=== PATIENT | female | born 1960 | race Caucasian/White ===

== ENCOUNTER 2020-04-22 00:30 | Outpatient (CLI) | payer MEDICAID, SELFPAY ==
[2020-04-22 18:56] LABS: SARS-CoV-2 RNA PCR Negative
== END 2020-04-22 00:31 | disposition home or self-care (01) ==
PROVIDERS: Visit Provider Student in an Organized Health Care Education/Training Program
DX: Z01.818 Encounter for other preprocedural examination (principal); Z11.59 Encounter for screening for other viral diseases
CPT/HCPCS: 87635; C9803; U0003

== ENCOUNTER 2020-04-22 09:52 | Outpatient (CLI) | payer MEDICAID, SELFPAY ==
--- NOTE | 2020-04-22 09:55 | ECG_ITS ---
Measurements Intervals [place] Rate: 49 P: 42 CO: 128 QRS: 6 QRSD: 101 T: 9 QT: 458 QTc: 417 Interpretive Statements SINUS BRADYCARDIA POOR R WAVE PROGRESSION, ANTERIOR LEADS BASELINE ARTIFACT- I, II, III, AVR, AVL, AVF ABNORMAL ECG Electronically Signed On 04-22-2020 10:45:39 CDT by Jose Gonzalez D.O.
[2020-04-22 10:27] LABS: Hematocrit 43.6 % (37.0-47.0); Hemoglobin 14.4 g/dL (12.0-15.0); Mean Corpuscular Hemoglobin 30.8 pg (26-34); Mean Corpuscular Volume 93.4 fl (80-100); Platelet Count Result 264 k/mm3 (150-375); Red Blood Count 4.67 M/mm3 (4.2-5.4); Red Cell Distribution Width 12.5 % (11.5-14.5); White Blood Count 7.8 K/mm3 (4.5-10.0)
== END 2020-04-22 09:53 | disposition home or self-care (01) ==
LOC: ANHSURGERY 09:55
PROVIDERS: Visit Provider Student in an Organized Health Care Education/Training Program
DX: Z01.818 Encounter for other preprocedural examination (principal); N95.0 Postmenopausal bleeding; I10 Essential (primary) hypertension; R94.31 Abnormal electrocardiogram [ECG] [EKG]
CPT/HCPCS: 36415; 85027; 86850; 86900; 86901; 93005

== ENCOUNTER 2020-04-24 01:42 | Day surgery (SDC) | payer MEDICAID, SELFPAY ==
[2020-04-14 15:20] VITALS: BMI 36.6
[2020-04-24] VITALS (13 sets, daily range): BP systolic 128–168; BP diastolic 53–82; PULSE 49–76; RESP 15–20; TEMP 36.1–37.2; O2SAT 91–100
--- NOTE | 2020-04-24 07:20 | PM.IMHP ---
H&P: HPI History of Present Illness Chief complaint: Postmenopausal Bleeding Narrative: Juliet Antunez is a 59 year old female with postmenopausal bleeding. Pt presented with this problem in May. She has undergone hysteroscopy, D&C without relief of her symptoms. D&C specimen came back benign endometrial polyp and fibroid. Pt states she is done with bleeding and cramping and would like definitive management via hysterectomy. Review of Systems Cardiovascular: Cardiovascular: Denies chest pain, Denies leg edema, Denies palpitations, Denies dyspnea and Denies dyspnea on exertion Respiratory: Respiratory: Denies cough, Denies dyspnea and Denies dyspnea on exertion Gastrointestinal: Gastrointestinal: Denies abdominal pain, Denies constipation, Denies diarrhea, Denies nausea and Denies vomiting Genitourinary: Genitourinary: Denies hematuria, Denies urinary frequency, Denies dysuria, Denies pelvic pain, Denies urinary incontinence and Denies vaginal discharge Neurologic: Reports system reviewed and no additional complaints, except as documented Psychiatric: Psychiatric: Reports no additional psychiatric complaints Endocrine: Endocrine: Denies palpitations PMFSH Past Medical History Medical History (Updated 04/24/20 @ 07:23 by Abdulaziz Benjamin MD) Anxiety Hypertension Osteoarthritis TIA (transient ischemic attack) x3 2017, no deficits Meds Home Medications and Allergies Home Medications Medication Instructions Recorded Confirmed Type alprazolam 0.5 mg PO HS PRN 04/14/20 04/14/20 History amlodipine 5 mg PO HS 04/14/20 04/14/20 History aspirin 81 mg PO DAILY 04/14/20 04/14/20 History cholecalciferol (vitamin D3) 125 mcg PO EVERY OTHER DAY 04/14/20 04/14/20 History [Vitamin D3] citalopram 40 mg PO DAILY 04/14/20 04/14/20 History lisinopril 40 mg PO DAILY 04/14/20 04/14/20 History Allergies Allergy/AdvReac Type Severity Reaction Status Date / Time meperidine Allergy Intermediate Vomiting Verified 04/14/20 15:08 Tetracyclines Allergy Intermediate STOMACH Verified 04/14/20 15:08 UPSET Exam Const: General: no acute distress Eyes: EOM: EOMs intact bilaterally Neck: Neck: supple Thyroid: thyroid normal Chest: Breast/axilla inspection: normal inspection of the breasts Breast/axilla palpation: normal palpation of the breasts, normal palpation of the axillae and no axillary lymphadenopathy Resp: Effort & Inspection: normal respiratory effort Auscultation: clear to auscultation bilaterally Cardio: Rate: regular rate Rhythm: regular rhythm GI: Inspection: non-distended GI Palp: Yes Soft to palpation, No Tenderness to palpation present (GI) and No Guarding due to palpation present (GI) Auscultation: normal bowel sounds : General: No bladder normal to palpation External Female Exam: normal external appearance Speculum Exam - Vagina: normal vaginal discharge and No vaginal bleeding Speculum Exam - Cervix: nontender Bimanual exam- vagina & uterus: No bladder normal to palpation and No Cervical tenderness present OB/external & speculum: No vaginal bleeding Skin: General skin exam: normal color and no rashes or lesions noted Neuro: Cognition (Neuro): normal cognition Speech: normal speech Extrem: General: normal to inspection and no edema Psych: Mental Status: mental status grossly normal Affect: normal affect Assessment and Plan Assessment and plan (1) Postmenopausal bleeding: Code(s): N95.0 - Postmenopausal bleeding Status: Acute Assessment and Plan: pt with persistent postmenopausal bleeding s/p hysteroscopy D&C US showed uterus measuring 6x5x5 cm D&C specimen returned bening polyp and fibroid pt desires defintive managment via hysterectomy plan for robotic assisted TLH/BSO
--- NOTE | 2020-04-24 10:44 | WPDANESEPPF ---
Anes - Initial Pre Proc Eval Procedure: Operation Date: 04/24/20 12:00 Proposed Procedures p Robotic Assisted Total Vaginal Hysterectomy, Bilateral Salpingo-Oophorectomy - Abdulaziz Benjamin MD Date/Time: 04/24/20 10:44 Surgeon: Abdulaziz Benjamin MD Pre Op Diagnosis: Postmenopausal Bleeding Patient Data Age: 59 Gender: F Height: 1.57 m Weight: 90.3 kg Last Vital Signs Temp 36.1 C L 04/24/20 10:35 Pulse 49 L 04/24/20 10:35 Resp 20 04/24/20 10:35 BP 145/63 H 04/24/20 10:35 Pulse Ox 98 04/24/20 10:35 Allergies Allergy/AdvReac Type Severity Reaction Status Date / Time meperidine Allergy Intermediate Vomiting Verified 04/24/20 10:43 Tetracyclines Allergy Intermediate STOMACH Verified 04/24/20 10:43 UPSET Home Medications Medication Instructions Recorded Confirmed Type alprazolam 0.5 mg PO HS PRN 04/14/20 04/24/20 History amlodipine 5 mg PO HS 04/14/20 04/24/20 History aspirin 81 mg PO DAILY 04/14/20 04/24/20 History cholecalciferol (vitamin D3) 125 mcg PO EVERY OTHER DAY 04/14/20 04/24/20 History [Vitamin D3] citalopram 40 mg PO DAILY 04/14/20 04/24/20 History lisinopril 40 mg PO DAILY 04/14/20 04/24/20 History ECG: Date of Service: 04/22/20 Procedure(s): CA 12 lead EKG Accession Number(s): [id number] cc: ~ Measurements Intervals [place] Rate: 49 P: 42 NV: 128 QRS: 6 QRSD: 101 T: 9 QT: 458 QTc: 417 Interpretive Statements SINUS BRADYCARDIA POOR R WAVE PROGRESSION, ANTERIOR LEADS BASELINE ARTIFACT- I, II, III, AVR, AVL, AVF ABNORMAL ECG Electronically Signed On 04-22-2020 10:45:39 CDT by Jose Gonzalez D.O. Dictated By: Jose Gonzalez DO 04/22/20 1029 Patient hx anesthesia problems: none Family hx anesthesia problems: none PMFSH Past Medical History Medical History (Updated 04/24/20 @ 10:46 by Johnny Rizo MD) Anxiety Arthritis Hypertension Obesity Osteoarthritis TIA (transient ischemic attack) x3 2017, no deficits Anes - Eval Final PreProcedure Day of Procedure 04/24/20 10:44 Patient weight: obese Heart: regular rate and rhythm Lungs: clear to auscultation and normal air movement Airway: Mallampati scale class II Neurological: alert and oriented Last oral intake: >/= 8 hours ASA classification: III Emergent: no Anesthetic plan: proceed Anesthesia type and monitoring: general ETT Informed Consent: The patient's anesthetic plan and its attendant risks and benefits were discussed with the patient/family/POA. Questions were solicited and answers provided to the satisfaction of the patient/family/POA.
[2020-04-24] MEDS: LACTATED RINGERS 1,000 ML 30 ML IV CONT ×2 (10:59→13:43)
[2020-04-24] MEDS: ceFAZolin 2 GM/D5W 50 ML 2 GM/50 ML BAG IVPB (11:59)
[2020-04-24] MEDS: LIDO 1%/EPINEPHRINE 1:100,000 20 ML VIAL 15 ML INFILTRATE (12:25)
--- NOTE | 2020-04-24 13:28 | P.OP_ITS ---
Procedure Note - Detailed Date of procedure: 04/24/20 Pre-op diagnosis: Postmenopausal Bleeding Procedure performed: Robotic assisted total laparoscopic hysterectomy bilateral salpingo-oophorectomy Description of procedure: PROCEDURE IN DETAIL: After the patient was appropriately consented she was taken to the operating room where she was transferred to the table in a dorsal supine position. General anesthesia was then induced with endotracheal intubation. The patient was transferred to a dorsal lithotomy position using adjustable yellow-fin stirrups. Her position was adjusted for appropriate support of her lower back and lower extremities. The patient was prepped and draped. A transurethral jett catheter was place. The cervix was sequentially dilated and a Fatimah II uterine manipulator placed in typical fashion about a 3 cm FRANKLYN ring. Gloves were changed. After confirmation of a functioning orogastric tube, lidocaine was injected at Patel's point in the LUQ and a 5mm incision was made. A 5mm Optiview trocar was then inserted into the abdominal cavity under direct visualization and done so without complication. The abdomen was then insufflated with approximately 2-3L of CO2 establishing a pneumoperitoneum and the patient was placed in Trendelenburg position. Just above the umbilicus in the midline, a 8 mm incision made after injection of lidocaine and a 8 mm bladeless trocar advanced into the abdominal cavity under direct visualization without incident. We subsequently placed two robotic ports in a similar fashion, one in the left mid-quadrant and one in the right, 10cm lateral to the midline port. The robot was then docked. The Left round ligament was divided and the pararectal and paravesicle spaces developed, identifying the course of the ureter. The infundibulopelvic ligaments were skeletonized, triply coagulated and then transected with monopolar stefanie away from the course of the ureter. The posterior aspect of the broad ligament was then skeletonized down to the level of the internal cervical os, mobilizing the ureter laterally. The bladder flap was then created sharply. The ipsilateral uterine artery was skeletonized, bipolar cauterized and transected. A similar procedure was performed on the contralateral side, developing the pelvic spaces, coagulating and dividing the IP away from the ureter, completing the bladder flap, and skeletonizing, ligating, and dividing the uterine artery on this side. We ensured the vaginal pneumo- occluder balloon was insufflated and made a circumferential colpotomy using monopolar current. The uterus, cervix, bilateral tubes and ovaries were then delivered transvaginally. I then re-approximated the colpotomy with a single interuppted 0-vicryl at the left apex and running #1 PDO barbed suture in 2 layers. Following this dissection, the abdomen and pelvis were copiously irrigated and all surgical sites found to be hemostatic. Skin sites were reapproximated with 4-0 Vicryl in a subcuticular fashion. Steri-Strips were placed. The patient tolerated the procedure well. Sponge, needle and instrument counts were correct x 2 and the patient was taken to recovery in stable condition. Ancef was given for antimicrobial prophylaxis. The patient had SCD's on for VTE prophylaxis during the entire procedure. Anesthesia: GETA Surgeon: Abdulaziz Benjamin MD Estimated blood loss (mL): 50 Urine output (mL): 100 Drains: No Packing: No Pathology: yes (uterus, cervix, bilateral fallopian tubes, bilateral ovaries ) Complications: No immediate complications Condition: stable Disposition: PACU
--- NOTE | 2020-04-24 13:33 | PM.DS ---
DS: Admitting Diagnosis Admitting Diagnosis Admitting Diagnosis: Postmenopausal bleeding DS: Summary Hospital Course Hospital Course: Juliet Antunez was admitted after robotic assisted total laparoscopic hysterectomy and bilateral salpingo-oophorectomy for abnormal uterine bleeding. The above procedure was performed with no complications. She is doing well post op. She states her pain is well controlled with PO medications. She reports minimal bleeding. She is ambulating up to the chair. Her jett catheter was removed. She is tolerating PO without N/V. She reports passing flatus. Status at Discharge Overall status at discharge: patient is progressing back to baseline Time Spent with Patient Time attestation: Total time spent providing and/or coordinating discharge services: Time spent: Less than 30 minutes Exam Const: General: comfortable and no acute distress Limitations: no limitations Resp: Effort & Inspection: normal respiratory effort Auscultation: clear to auscultation bilaterally Cardio: Rate: regular rate Rhythm: regular rhythm GI: Inspection: non-distended GI Palp: Yes Soft to palpation, Yes Tenderness to palpation present (GI) (milder tenderness to deep palpation) and No Guarding due to palpation present (GI) Auscultation: normal bowel sounds Other: incisions C/D/I covered with dermabond Urinary Catheter: Urinary Catheter: urine clear Skin: General skin exam: normal color Extrem: General: normal to inspection Psych: Mental Status: mental status grossly normal Affect: normal affect DS: Data Data Completed and Pending Pending studies at discharge: Pending at discharge 04/24/20 13:12 Surgical [PTH] Routine Discharge Plan Discharge Patient Disposition: Home, Self-Care Patient Instructions: Laparoscopic Hysterectomy (DC) Follow-up/Referrals: Abdulaziz Benjamin MD [Physician] - Discharge Medications: New oxycodone-acetaminophen [Percocet] 5-325 mg tablet 1 tablet PO Q6H PRN (Reason: pain) Qty: 28 RF: 0 ibuprofen 600 mg tablet 600 mg PO Q6H PRN (Reason: pain) Qty: 30 RF: 0 docusate sodium [Colace] 100 mg capsule 100 mg PO BID Qty: 30 RF: 0 Continued citalopram 40 mg tablet 40 mg PO DAILY RF: 0 amlodipine 5 mg tablet 5 mg PO HS RF: 0 aspirin 81 mg Tablet,Delayed Release (Dr/Ec) 81 mg PO DAILY RF: 0 alprazolam 0.5 mg tablet 0.5 mg PO HS PRN (Reason: Anxiety) RF: 0 lisinopril 40 mg tablet 40 mg PO DAILY RF: 0 cholecalciferol (vitamin D3) [Vitamin D3] 125 mcg (5,000 unit) Tablet 125 mcg PO EVERY OTHER DAY RF: 0 Primary Care Provider: PHYSICIAN,MIXING MACHINE ATTENDANT Attending physician on admission: Abdulaziz Benjamin
[2020-04-24] MEDS: DEXTROSE 5%/LACTATED RINGERS 1,000 ML 125 ML IV CONT (15:23)
[2020-04-24] MEDS: KETOROLAC 30 MG/ML VIAL (*BKC) IV PUSH (15:24)
[2020-04-24] MEDS: AMLODIPINE BESYLATE 5 MG TABLET PO (21:20)
[2020-04-25] MEDS: IBUPROFEN 600 MG TABLET PO ×2 (00:49→06:37)
[2020-04-25] MEDS: lisinopriL 20 MG TABLET PO ×2 (00:49→09:52)
[2020-04-25 06:00] VITALS: BP 157/80; PULSE 62; RESP 17; TEMP 36.9
--- NOTE | 2020-04-25 06:37 | P.PNOB_ITS ---
OB - PN: Subj Subjective Date/time seen: 04/25/20 06:37 Patient comments: no complaints OB - PN A/P Plan day: 1 Plan: routine care, discharge home and follow up 6 weeks (2 weeks) Time Spent With Patient Time: Total time spent is greater than 50% in coordination of care (as documente d) at patient's floor/unit and/or counseling patient: Time with patient: less than 15 minutes Review of Systems Review of Systems: All systems reviewed & are unremarkable except as noted in HPI and below Exam Const: General: no acute distress Eyes: General: appearance normal, both eyes and all related structures Neck: Neck: supple and no JVD Thyroid: thyroid normal Resp: Effort & Inspection: normal respiratory effort Auscultation: clear to auscultation bilaterally Cardio: Rate: regular rate Rhythm: regular rhythm GI: Inspection: incision (cdi) Auscultation: normal bowel sounds : General: Yes bladder normal to palpation External Female Exam: normal external appearance Speculum Exam - Vagina: normal vaginal discharge and No vaginal bleeding Speculum Exam - Cervix: nontender Bimanual exam- vagina & uterus: bladder normal to palpation and No Cervical tenderness present OB/external & speculum: No vaginal bleeding Skin: General skin exam: no rashes or lesions noted Extrem: General: normal to inspection and no edema Psych: Mental Status: mental status grossly normal Affect: normal affect
[2020-04-25 06:53] LABS: Potassium 3.9 mmol/L (3.4-5.0)
[2020-04-25 06:57] LABS: Blood Urea Nitrogen 8 mg/dL (7-17); Calcium 8.6 mg/dL (8.4-10.2); Carbon Dioxide 29 mmol/L (22-30); Chloride 103 mmol/L (98-107); Estimated CRCL calculation 106 ml/min; Estimated Glomerular Filt Rate > 60; Glucose 125 mg/dL (65-105); Sodium 135 mmol/L (137-145)
[2020-04-25 06:58] LABS: Basophils Percent Auto 0.2 % (0.2-1.2); Eosinophils Percent Auto 0.1 % (0-4.4); Hematocrit 38.6 % (37.0-47.0); Hemoglobin 12.8 g/dL (12.0-15.0); Immature Granulocyte Absolute 0.07 K/mm3 (0.00-0.031); Immature Granulocyte Percent A 0.5 % (0-0.5); Lymphocytes Absolute Auto 1.43 K/mm3 (0.9-3.2); Lymphocytes Percent Auto 9.7 % (18.3-44.2); Mean Corpuscular HGB Conc 33.2 g/dl (32-36); Mean Corpuscular Hemoglobin 31.1 pg (26-34); Mean Corpuscular Volume 93.7 fl (80-100); Mean Platelet Volume 11.4 fl (7.4-10.4); Monocytes Absolute Auto 0.7 K/mm3 (0.1-0.6); Monocytes Percent Auto 4.6 % (2.6-8.5); Neutrophils Absolute Auto 12.5 K/mm3 (1.3-6.7); Neutrophils Percent Auto 84.9 % (45.5-73.1); Platelet Count Result 244 k/mm3 (150-375); Red Blood Count 4.12 M/mm3 (4.2-5.4); Red Cell Distribution Width 12.5 % (11.5-14.5); White Blood Count 14.7 K/mm3 (4.5-10.0)
[2020-04-25 07:55] VITALS: BP 150/61; PULSE 64; RESP 18; TEMP 37.3; O2SAT 93
--- NOTE | 2020-04-25 08:42 | WPDANESPN ---
Anes - Prog Note Post-Op Date/Time: 04/25/20 08:42 Cardiovascular status: normal Respiratory status: normal Airway patency: baseline Mental status: baseline Post-Op hydration status: normal Vital Signs: Last Vital Signs Temp 98.4 F 04/25/20 06:00 Pulse 62 04/25/20 06:00 Resp 17 04/25/20 06:00 BP 157/80 H 04/25/20 06:00 Pulse Ox 98 04/24/20 23:45 I/O: Intake & Output 04/24/20 04/25/20 04/25/20 23:59 07:59 15:59 Intake Total 728 2000 Output Total 75 2750 Balance 653 -750 Laboratory Tests 04/25/20 06:37 04/25/20 06:37 04/25/20 04/25/20 06:37 06:37 WBC 14.7 H RBC 4.12 L Hgb 12.8 Hct 38.6 MCV 93.7 MCH 31.1 MCHC 33.2 RDW 12.5 Plt Count 244 MPV 11.4 H Immature Gran % (Auto) 0.5 Neut % (Auto) 84.9 H Lymph % (Auto) 9.7 L [place] % (Auto) 4.6 Eos % (Auto) 0.1 Baso % (Auto) 0.2 Lymph # (Auto) 1.43 [place] # (Auto) 0.7 H Eos # (Auto) 0.0 Baso # (Auto) 0.0 Abs Immat Gran (auto) 0.07 H Absolute Neuts (auto) 12.5 H Absolute Nucleated RBC 0.0 Nucleated RBC % 0.0 Sodium 135 L Potassium 3.9 Chloride 103 Carbon Dioxide 29 BUN 8 Creatinine 0.50 L Estim Creat Clear Calc 106 Estimated GFR > 60 Glucose 125 H Calcium 8.6 Post-procedural complaints: none Patient Feedback: Patient satisfied with anesthetic care.
[2020-04-25] MEDS: CITALOPRAM HYDROBROMIDE 20 MG TABLET 40 MG PO (09:52)
[2020-04-25] MEDS: SIMETHICONE 80 MG TAB.CHEW PO (11:44)
== END 2020-04-25 12:43 | disposition home or self-care (01) ==
LOC: ANHSURGERY 13:33 → ANHOB2 04-25 15:03
PROVIDERS: Visit Provider Student in an Organized Health Care Education/Training Program
PROC: (CPT 58552; principal; 2020-04-24 12:00)
DX: N95.0 Postmenopausal bleeding (principal); N80.0 Endometriosis of uterus; D25.1 Intramural leiomyoma of uterus; D25.2 Subserosal leiomyoma of uterus; D25.0 Submucous leiomyoma of uterus; D26.9 Other benign neoplasm of uterus, unspecified; I10 Essential (primary) hypertension; F41.9 Anxiety disorder, unspecified; E66.9 Obesity, unspecified; Z68.36 Body mass index [BMI] 36.0-36.9, adult; Z86.73 Personal history of transient ischemic attack (TIA), and cerebral infarction without residual deficits; Z79.899 Other long term (current) drug therapy; Z79.82 Long term (current) use of aspirin; Z88.1 Allergy status to other antibiotic agents
CPT/HCPCS: 58552; S2900; 36415; 80048; 85025; 88307; 99199; A9270; J0131; J0330; J0690; J1100; J1170; J1885; J2250; J2405; J2704; J3010; J7030; J7120; J7121

== ENCOUNTER 2024-09-10 15:48 | Outpatient (CLI) | payer MEDICARE, SELFPAY ==
--- NOTE | ~2024-09-10 | CT_ITS ---
CT Scan of the Chest without Contrast: Clinical Indication: Lung cancer screening, nicotine dependence Technique: Contiguous sections were acquired throughout the chest without intravenous contrast. Dose reduction technique was used on this scan by utilizing automated exposure control and iterative recon struction technique. The dose-length product (DLP) was 180.52 mGy-cm. Findings: There is no evidence of any significant mediastinal, hilar or axillary lymphadenopathy. The mediastin al soft tissues appear normal. There is no evidence of pleural or pericardial effusion. 2 mm right middle lobe nodule present (axial image 77). 4 mm lingular nodule present, possibly calcif ied (axial image 81). Calcified left basilar granuloma present. There is moderate to advanced emphyse ma, especially the upper lobes. Images through the upper abdomen reveal no abnormalities. Impression: Lung RADS 2: Benign appearance. 12 month follow-up screening CT advised. Reviewed, dictated and finalized at [facility]. INE BILLER Impression: Lung RADS 2: Benign appearance. 12 month follow-up screening CT advised.
== END 2024-09-10 15:49 | disposition home or self-care (01) ==
LOC: ANHIMG 15:49
PROVIDERS: PCP Family Medicine; Visit Provider Family Medicine
DX: Z12.2 Encounter for screening for malignant neoplasm of respiratory organs (principal); Z87.891 Personal history of nicotine dependence
CPT/HCPCS: 71271